=== PATIENT | female | born 1955 | race Caucasian/White ===

== ENCOUNTER → 2018-04-24 | Outpatient (CLI) | payer MEDICARE | LOC: M ONCR 09:44 | DX: C50.911 Malignant neoplasm of unspecified site of right female breast (principal) | CPT/HCPCS: G0463 ==

== ENCOUNTER → 2018-05-26 | Outpatient (RCR) | payer MEDICARE ==
[2018-05-05 10:23] LABS: HEMATOCRIT 41.3 % (36.0-47.0); HEMOGLOBIN 12.5 g/dl (12.0-15.5); MEAN CORPUSCULAR HEMOGLOBIN 25.2 pg (27.0-33.0); MEAN CORPUSCULAR HGB CONC 30.3 g/dl (32.0-36.5); MEAN CORPUSCULAR VOLUME 83.1 fl (80.0-96.0); PLATELET COUNT, AUTOMATED 355 10^3/uL (150-450); RED BLOOD COUNT 4.97 10^6/uL (4.00-5.40); WHITE BLOOD COUNT 8.7 10^3/uL (4.0-10.0)
--- NOTE | 2018-05-06 10:59 | RADONC ---
RADIATION ONCOLOGY SIMULATION NOTE DATE: 05/05/2018 CHART NUMBER: [id number] SIMULATION NOTE: Ms. Oconnell was taken to the CT scan for CT simulation of her right breast field. CT was accomplished without difficulty or discomfort. Radiation treatment planning is underway and radiation treatments will begin subsequently. An immobilization device was created and will be used throughout the course of treatment. It was created without difficulty or discomfort. I was physically present throughout the course of CT simulation.
--- NOTE | 2018-05-14 17:44 | MEDONCTEEN ---
Date/Time of Encounter Date of Encounter: May 14, 2018 Time of Encounter: 17:35 Telephone Encounter Oncotype DX recurrence score = 18 with chemotherapy benefit <1%. Chemotherapy not recommended. Results discussed with Rogerio. Rogerio is currently on radiation. Advised to start anastrozole after completing chemotherapy. Followup appointment on 06/16/2018. PATTIE LACY MD May 14, 2018 17:44
[~2018-05-26] MED LIST: ANAS1TAB2 PO; ASPI81TA85 PO; BIOT1TAB PO; BUTA1CAP PO; CALC1TAB26 PO; LUTE20CA PO; MAGN500C PO; OMEP40CA2 PO; PROP120C PO; PROP160C PO; VITA-113 SL; VITA100066 PO; VITA500C24 PO; VITATAB73 PO; VITMTA PO
--- NOTE | 2018-05-28 14:24 | RADONC ---
RADIATION ONCOLOGY PROGRESS NOTE: DATE: 05/26/2018 CHART NUMBER: [id number] Ms. Oconnell is presently at a dose of 1067 cGy to her right breast and is tolerating treatments quite well at this point with no complaints related to her radiation therapy. She is having no breast or bone pain. REVIEW OF SYSTEMS: The patient's review of systems is noncontributory. She denies nausea, vomiting, fevers, chills, night sweats, diplopia, headaches, anxiety or depression, anorexia, weight loss, visual disturbances, chest pain, urinary or bowel difficulties, bone pain, or neurological problems. PHYSICAL EXAMINATION: The patient's skin is in good condition with no evidence of moist or dry desquamation. The remainder of her physical exam remains unchanged. Ms. Oconnell is tolerating treatments quite well and radiation will continue as scheduled.
== END ==
LOC: M ONCR 05-05 09:45
PROVIDERS: ATTEND Radiology Radiation Oncology
DX: C50.811 Malignant neoplasm of overlapping sites of right female breast (principal)

== ENCOUNTER 2018-06-19 09:15 | Outpatient (RCR) | payer MEDICARE ==
--- NOTE | 2018-06-10 07:05 | RADONC ---
RADIATION ONCOLOGY SIMULATION NOTE DATE: 06/09/2018 CHART #: [id number] Ms. Oconnell was taken to linear accelerator today for clinical setup of her electron beam right breast boost field. Setup was accomplished without difficulty or discomfort. Radiation treatment planning is underway and radiation treatments will begin subsequently. An immobilization device was created and will be used throughout the course of treatment. It was created without difficulty or discomfort. I was physically present throughout the course of clinical setup simulation.
--- NOTE | 2018-06-10 07:06 | RADONC ---
RADIATION ONCOLOGY PROGRESS NOTE DATE: 06/09/2018 CHART #: [id number] Ms. Oconnell is thus far at a dose of 3200 cGy to her right breast and is tolerating treatments quite well at this point with no complaints related to her radiation therapy. She is having no breast or bone pain. REVIEW OF SYSTEMS: The patient's review of systems is noncontributory. Denies nausea, vomiting, fevers, chills, night sweats, diplopia, headaches, anxiety or depression, anorexia, weight loss, visual disturbances, chest pain, urinary or bowel difficulties, bone pain, or neurological problems. PHYSICAL EXAMINATION: The patient's skin is in good condition with no evidence of moist or dry desquamation. The remainder of her physical exam remains unchanged. Ms. Oconnell is tolerating treatments quite well and radiation will continue as scheduled.
--- NOTE | 2018-06-20 09:01 | RADONC ---
RADIATION ONCOLOGY TREATMENT SUMMARY DATE: 06/19/2018 CHART #: [id number] DIAGNOSIS: Right breast cancer. STAGE: I A, [id number], grade 2, HER2/bc negative, ER positive, CT not tested. ECOG PERFORMANCE STATUS: 0. TREATMENT SUMMARY: Ms. 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 We treated the patient to her right breast for a total dose of 4000 cGy delivered in 15 fractions of 266.67 cGy each over 22 elapsed days from 05/21/2018 through 06/12/2018. The patient's right breast was treated on a linear accelerator utilizing 3-D conformal technique with medial and lateral tangential henao. A combination of 15 X and 6 X photons were utilized. Following completion of 4000 cGy to the entire right breast the primary site was boosted for an additional 900 cGy delivered in five fractions of 180 cGy from 06/13/2018 through 06/19/2018. The primary site boost was treated on the linear accelerator utilizing a 12 MEV electron beam prescribed to the 90% isodose line via non phos technique. This brought the primary site to a total dose of 4900 cGy delivered in 20 fractions over 29 elapsed days from 05/21/2018 through 06/19/2018. Ms. Oconnell tolerated her treatments quite well and was able complete therapy as prescribed without interruption. I have scheduled the patient to see me again in 1 month for further followup. She will also continue to be followed by her other physicians as well. Thank you for allowing us to participate in the care of this very pleasant woman. If I could be of any further assistance or provide you with any information, please free to contact me at anytime. As always warm regards. cc: MD Sharda Zamarripa MD, FACP Tomas Pennington MD
== END 2018-06-26 ==
LOC: M ONCR 09:15
PROVIDERS: ATTEND Radiology Radiation Oncology
DX: C50.811 Malignant neoplasm of overlapping sites of right female breast (principal)

== ENCOUNTER → 2018-10-08 | Outpatient (CLI) | payer MEDICARE ==
[~2018-10-08] MED LIST changes: +LETR2.5T2 PO; +MAGN500T12 PO; +SLOW160T12 PO
--- NOTE | 2018-10-09 08:37 | RADONC ---
RADIATION ONCOLOGY PROGRESS NOTE DATE: 10/08/2018 CHART NUMBER: [id number] PROGRESS NOTE: Mrs. Oconnell with a diagnosis of stage IA, [id number], grade 2, HER2 negative, ER positive, AL not tested right-sided breast cancer returns today for a followup visit. She completed her adjuvant radiotherapy on 06/19/2018. Since this time she has been healing nicely and denies any nausea, vomiting, coughing, sputum production or hemoptysis. REVIEW OF SYSTEMS: She also denies any anxiety, depression, diplopia, headaches, night sweats, fevers or chills, anorexia, weight loss, visual disturbances, chest pain, urinary or bowel difficulties, bone pain or neurologic issues. PHYSICAL EXAMINATION: The patient's skin appears to show some minimal hyperpigmentation but no masses are palpable in either breast. Lymphatics: No palpable peripheral lymphadenopathy is appreciated. Lungs: Clear to auscultation and percussion. Heart: Regular without murmurs. Abdomen: Without evidence of hepatomegaly, masses, deep abdominal tenderness. Extremities: Without cyanosis, clubbing or edema. Neurologic: Examination physiologic. IMPRESSION: Clinically DONTRELL. PLAN: She has an appointment to return to see Dr. Armas and Dr. Tomas Pennington as well as Dr. Jonas Brunson. We would like her to return here in approximately 6 months and she was encouraged to continue her routine followup visits with her referring physicians as per their directions.
== END ==
LOC: M ONCR 11:36
PROVIDERS: ATTEND Radiology Radiation Oncology
DX: C50.811 Malignant neoplasm of overlapping sites of right female breast (principal)

== ENCOUNTER → 2019-03-25 | Outpatient (CLI) | payer MEDICARE ==
[~2019-03-25] MED LIST changes: +OCUVTAB4 PO; -OMEP40CA2 PO; +OMEP40CA97 PO
--- NOTE | 2019-03-25 12:21 | RADONC ---
RADIATION ONCOLOGY FOLLOWUP NOTE DATE: 03/25/2019 CHART #: [id number] DIAGNOSIS: Right breast cancer. STAGE: I A, [id number], grade 2, HER2/bc negative, ER positive, [place] not tested. ECOG PERFORMANCE STATUS: 0. FOLLOWUP NOTE: Ms. 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 The patient presents today reporting that she is doing quite well with no complaints at this time related to her radiation therapy or disease. She has no breast or bone pain. REVIEW OF SYSTEMS: The patient's review of systems is noncontributory. Denies nausea, vomiting, fevers, chills, night sweats, diplopia, headaches, anxiety or depression, anorexia, weight loss, visual disturbances, chest pain, urinary or bowel difficulties, bone pain, or neurological problems. PHYSICAL EXAMINATION: The patient is a well-developed, well-nourished female in no acute distress. HEENT exam is normocephalic, atraumatic. Extraocular movements are intact. There is no palpable cervical, supraclavicular, infraclavicular, axillary, or inguinal lymphadenopathy present. Lungs are clear to auscultation and percussion. Heart has a regular rate and rhythm. Abdomen is benign with no hepatosplenomegaly, masses, or tenderness. Breast examination reveals no masses or discharge bilaterally. Skeletal examination reveals no tenderness to pressure or percussion of the bony skeleton. Extremities reveal no clubbing, cyanosis, or edema. Neurologic exam is grossly intact, as is the remainder of the physical examination. ASSESSMENT: The patient is clinically DONTRELL at this time. She is leaving for [place] next month and will not be back until Spring. She is being followed closely by her surgeon and other physicians and therefore is being discharged at her request from my followup at this point. cc: MD Cecilia Zamarripa MD Steven Lyndaker, MD
== END ==
LOC: M ONCR 09:03
PROVIDERS: ATTEND Radiology Radiation Oncology
DX: C50.811 Malignant neoplasm of overlapping sites of right female breast (principal)

== ENCOUNTER → 2019-09-14 | Outpatient (CLI) | payer MEDICARE ==
[~2019-09-14] MED LIST changes: +LOPR1TAB6 PO
[2019-09-14 11:11] LABS: BASO % 0.6 % (0.0-1.0); EOS # 0.1 10^3/uL (0.0-0.5); HEMATOCRIT 47.2 % (36.0-47.0); HEMOGLOBIN 15.4 g/dl (12.0-15.5); LYMPH # 1.4 10^3/uL (1.5-5.0); LYMPH % 21.9 % (24.0-44.0); MEAN CORPUSCULAR HEMOGLOBIN 31.2 pg (27.0-33.0); MEAN CORPUSCULAR HGB CONC 32.6 g/dl (32.0-36.5); MEAN CORPUSCULAR VOLUME 95.7 fl (80.0-96.0); MONO # 0.4 10^3/uL (0.0-0.8); MONO % 6.5 % (0.0-5.0); NEUTROPHILS # 4.4 10^3/uL (1.5-8.5); NEUTROPHILS % 68.7 % (36.0-66.0); PLATELET COUNT, AUTOMATED 266 10^3/uL (150-450); RED BLOOD COUNT 4.93 10^6/uL (4.00-5.40); WHITE BLOOD COUNT 6.5 10^3/uL (4.0-10.0)
[2019-09-14 11:33] LABS: ALBUMIN 3.1 GM/DL (3.2-5.2); ALT/SGPT 29 U/L (12-78); BILIRUBIN,TOTAL 0.3 MG/DL (0.2-1.0); BLOOD UREA NITROGEN 19 MG/DL (7-18); CALCIUM LEVEL 9.2 MG/DL (8.8-10.2); CARBON DIOXIDE LEVEL 32 MEQ/L (21-32); CHLORIDE LEVEL 108 MEQ/L (98-107); CREATININE FOR GFR 0.86 MG/DL (0.55-1.30); GLOMERULAR FILTRATION RATE > 60.0 (>45); GLUCOSE, FASTING 79 MG/DL (70-100); POTASSIUM SERUM 4.4 MEQ/L (3.5-5.1); SODIUM LEVEL 143 MEQ/L (136-145); TOTAL PROTEIN 6.7 GM/DL (6.4-8.2)
== END ==
LOC: M LAB 10:31
PROVIDERS: ATTEND Internal Medicine Hematology
DX: C50.411 Malignant neoplasm of upper-outer quadrant of right female breast (principal)

== ENCOUNTER → 2024-09-24 | Outpatient (CLI) | payer MEDICARE ==
[~2024-09-24] MED LIST changes: +APPL300T4 PO; -ASPI81TA85 PO; +ASPI81TA86 PO; +CVS1CAP2 PO; +ECOT81TA5 PO; +NEUR100C PO; +OMEP40CA4 PO; -OMEP40CA97 PO; +TAMO20TA8 PO; +VITA1CAP25 PO
== END ==
LOC: M CARPUL 15:52
PROVIDERS: ATTEND Registered Nurse
DX: R94.31 Abnormal electrocardiogram [ECG] [EKG] (principal)

== ENCOUNTER → 2024-09-28 | Outpatient (CLI) | payer MEDICARE | LOC: M CARPUL 14:16 | PROVIDERS: ATTEND Registered Nurse | DX: R06.02 Shortness of breath (principal) ==

== ENCOUNTER → 2024-12-24 | Outpatient (RCR) | payer MEDICARE | LOC: M PT 11-25 08:57 | PROVIDERS: ATTEND Specialist | DX: I89.0 Lymphedema, not elsewhere classified (principal) ==

== ENCOUNTER 2024-12-25 09:50 | Outpatient (RCR) | payer MEDICARE ==
[2025-01-22] MEDS ORDERED: LISI20TA33 (10:30)
[2025-01-22] MEDS ORDERED: ALBU8.5H (10:30)
[2025-01-22] MEDS ORDERED: BUSP5TA (10:30)
[2025-01-22] MEDS ORDERED: BUDE10.32 (10:30)
== END 2025-01-24 ==
LOC: M PT 09:50
PROVIDERS: ATTEND Specialist
DX: I89.0 Lymphedema, not elsewhere classified (principal)